=== PATIENT | male | born 1980 | race Caucasian/White ===

== ENCOUNTER 2017-02-17 14:40 | Emergency (ER) | payer OTHER ==
--- NOTE | 2017-02-17 15:03 | ED ---
Skin/Abscess/FB HPI - General Chief complaint: Skin/Abscess/Foreign Body Stated complaint: bug in ear Time Seen by Provider: 02/17/17 14:51 Source: patient, RN notes reviewed Mode of arrival: ambulatory Limitations: no limitations - History of Present Illness Initial comments: 36-year-old male presents emergency Department with chief complaint of right ear about. Patient states that he was up slightly at work and states that a bug flew into his ear. Patient states he can hear it moving around and feel it. Patient denies any bleeding no decreased hearing loss. - Related Data Allergies Allergy/AdvReac Type Severity Reaction Status Date / Time No Known Allergies Allergy Verified 02/17/17 14:51 Review of Systems ROS Statement: Those systems with pertinent positive or pertinent negative responses have been documented in the HPI. ROS Other: All systems not noted in ROS Statement are negative. Past Medical History Past Medical History: No Reported History History of Any Multi-Drug Resistant Organisms: None Reported Past Surgical History: No Surgical Hx Reported Past Psychological History: No Psychological Hx Reported Smoking Status: Current every day smoker Past Alcohol Use History: None Reported Past Drug Use History: None Reported General Exam Limitations: no limitations General appearance: alert, in no apparent distress Eye exam: Present: normal appearance, PERRL, EOMI. Absent: scleral icterus, conjunctival injection, periorbital swelling ENT exam: Present: normal oropharynx, mucous membranes moist, TM's normal bilaterally. Absent: normal exam, normal external ear exam (Right external auditory canal there is about with wings noted) Procedures - Foreign Body Removal Ear Location: ear canal (R) Foreign Body Suspected: insect If Insect Suspected: ear canal inspected; intact TM, insect seen Foreign Body Removed: yes Foreign Body Removal Technique: instrumentation Tympanic Membrane Intact: Yes Patient Tolerated Procedure: well, no complications Complications: none Medical Decision Making - Medical Decision Making 36-year-old male present emergency from for about in his right ear canal. This was removed nontraumatic there is no injury to the callused or TM. Patient be discharged at this time return parameters were discussed. Disposition Clinical Impression: Foreign body in ear Disposition: HOME SELF-CARE Condition: Stable Instructions: Ear Foreign Body (ED) Additional Instructions: Please return to the Emergency Department if symptoms worsen or any other concerns. Referrals: None,Stated [Primary Care Provider] - 1-2 days Time of Disposition: 15:03
== END 2017-02-17 15:12 | disposition home or self-care (01) ==
LOC: EC 14:40
DX: T16.1XXA Foreign body in right ear, initial encounter (principal); F17.200 Nicotine dependence, unspecified, uncomplicated; Y92.89 Other specified places as the place of occurrence of the external cause; Y93.89 Activity, other specified
CPT/HCPCS: 69200; 99282

== ENCOUNTER 2022-05-28 08:04 | Emergency (ER) | payer OTHER ==
[2022-05-28 08:29] VITALS: BP 151/85; PULSE 74; RESP 18; TEMP 98.7
[2022-05-28] MEDS ORDERED: DEXAMETHASONE SOD PHOSPHATE 10 MG/ML 1 ML VIAL IM STA (08:48)
--- NOTE | 2022-05-28 08:51 | ED ---
ENT HPI - General Chief complaint: ENT Stated complaint: Sore throat, unable to swallow Time Seen by Provider: 05/28/22 08:09 Source: patient, family, RN notes reviewed Mode of arrival: ambulatory Limitations: no limitations - History of Present Illness Initial comments: This is a 42-year-old male who presents to the emergency department for a sore throat. States that it initially started 3 days ago, seemed to get better, and then returned. His throat was initially scratchy and now it is very painful. He is unable to swallow due to the pain. Denies any other upper respiratory symptoms. Patient is very tearful in the room due to his discomfort. Denies any sick contacts. Denies any fevers, chills, cough, dyspnea, chest pain, palpitations, abdominal pain, nausea, vomiting, diarrhea, back pain, or headaches. MD complaint: sore throat Onset/Timin -: days(s) Location: throat Worsens with: swallowing - Related Data Previous Rx's Medication Instructions Recorded Nirmatrelvir/Ritonavir [Paxlovid 1 each PO BID 5 Days #10 each 05/28/22 300-100 mg Pack (Eua)] Allergies Allergy/AdvReac Type Severity Reaction Status Date / Time No Known Allergies Allergy Verified 05/28/22 08:29 Review of Systems ROS Statement: Those systems with pertinent positive or pertinent negative responses have been documented in the HPI. ROS Other: All systems not noted in ROS Statement are negative. Past Medical History Past Medical History: No Reported History History of Any Multi-Drug Resistant Organisms: None Reported Past Surgical History: No Surgical Hx Reported Past Psychological History: No Psychological Hx Reported Smoking Status: Never smoker Past Alcohol Use History: None Reported Past Drug Use History: None Reported General Exam Limitations: no limitations General appearance: alert, in distress Head exam: Present: atraumatic, normocephalic, normal inspection ENT exam: Present: other (Posterior pharyngeal erythema with 2-3+ tonsillar hypertrophy. No uvula deviation or exudates.) Respiratory exam: Present: normal lung sounds bilaterally. Absent: respiratory distress, wheezes, rales, rhonchi, stridor Cardiovascular Exam: Present: regular rate, normal rhythm, normal heart sounds. Absent: systolic murmur, diastolic murmur, rubs, gallop, clicks Neurological exam: Present: alert, oriented X3, CN II-XII intact Psychiatric exam: Present: normal affect, normal mood Skin exam: Present: warm, dry, intact, normal color. Absent: rash Course Vital Signs 05/28/22 08:26 Temperature 98.7 F Pulse Rate 74 Respiratory 18 Rate Blood Pressure 151/85 O2 Sat by Pulse 98 Oximetry Medical Decision Making - Medical Decision Making This is a 60-[id number]-year-old male who presents to the emergency department for a sore throat. Patient tested for COVID and strep throat. 10mg of IM Decadron was administered. Patient positive for COVID-19 and rapid strep test was negative. Prescription for Paxlovid provided. Advised [id number] ibuprofen and Tylenol as needed for additional relief. He is also instructed to quarantine for 5 days and practice extra precautions for an additional 5 days, including always wearing a mask around others and avoiding travel. Return precautions reviewed in depth, the patient is instructed to return to the emergency department with any new, worsening, or concerning symptoms. Patient verbalized understanding. This case was discussed in detail with the attending ED physician. Presentation, findings, and treatment plan discussed in detail as well. - Lab Data Lab Results 05/28/22 05/28/22 Range/Units 08:33 08:35 Coronavirus (PCR) Detected A (Not Detectd) Group A Strep Rapid Negative (Negative) Disposition Clinical Impression: COVID-19 Disposition: HOME SELF-CARE Instructions (If sedation given, give patient instructions): COVID-19 (Coronavirus Disease 2019) (ED), How to Recover from COVID-19 at Home (ED) Additional Instructions: Return to the emergency department with any new, worsening, or concerning symptoms. Take the Paxlovid as prescribed for 5 days. Take Ibuprofen and Tylenol to help with throat pain and swelling. Make sure that you quarantine for 5 days and practice extra precautions for an additional 5 days, including always wearing a mask around others and avoiding travel. Prescriptions: Nirmatrelvir/Ritonavir [Paxlovid 300-100 mg Pack (Eua)] 1 each PO BID 5 Days #10 each Is patient prescribed a controlled substance at d/c from ED?: No Referrals: Leonardo Gaona Jr, DO [Primary Care Provider] - 1-2 days
== END 2022-05-28 09:45 | disposition home or self-care (01) ==
LOC: EC 08:04
DX: U07.1 COVID-19 (principal)
CPT/HCPCS: 87081; 87430; 87635; 99283; 96372; J1100

== ENCOUNTER 2023-03-12 20:48 | Observation (INO) | payer OTHER ==
[2023-03-12] MEDS ORDERED: HYDROmorphone 0.5 MG/0.5 ML SYRINGE IVP STA (20:52)
[2023-03-12 20:56] LABS: Glucose,Whole Blood 116 mg/dL (70-110)
[2023-03-12 21:18] LABS: ALT 25 U/L (4-49); AST 34 U/L (17-59); African American GFR (CKD) >90 (>60 ml/min/1.73 sqM); Albumin 4.2 g/dL (3.5-5.0); Alkaline Phosphatase 54 U/L (38-126); Anion Gap 10 mmol/L; Blood Urea Nitrogen 13 mg/dL (9-20); Calcium 8.2 mg/dL (8.4-10.2); Carbon Dioxide 23 mmol/L (22-30); Chloride 103 mmol/L (98-107); Glucose 120 mg/dL (74-99); Non-African American GFR(CKD) 82 (>60 ml/min/1.73 sqM); Potassium 3.3 mmol/L (3.5-5.1); Sodium 136 mmol/L (137-145); Total Bilirubin 0.6 mg/dL (0.2-1.3)
[2023-03-12 21:21] LABS: Alcohol 224 mg/dL; Basophils # (A) 0.1 k/uL (0-0.2); Basophils % (A) 0 %; Eosinophils # (A) 0.1 k/uL (0-0.7); Eosinophils % (A) 1 %; HCT 41.8 % (39.0-53.0); Lymphocytes # (A) 2.7 k/uL (1.0-4.8); Lymphocytes % (A) 25 %; MCH 28.8 pg (25.0-35.0); MCHC 33.4 g/dL (31.0-37.0); MCV 86.1 fL (80.0-100.0); Monocytes # (A) 0.4 k/uL (0-1.0); Monocytes % (A) 3 %; Neutrophils # (A) 7.5 k/uL (1.3-7.7); Neutrophils % (A) 69 %; Platelet Count 281 k/uL (150-450); RBC 4.86 m/uL (4.30-5.90); RDW 12.5 % (11.5-15.5); WBC 10.9 k/uL (3.8-10.6)
[2023-03-12 21:23] LABS: Prothrombin Time 10.5 sec (9.0-12.0)
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
[2023-03-12 21:51] LABS: Partial Thromboplastin Time 18.8 sec (22.0-30.0)
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
[2023-03-12] MEDS ORDERED: NALOXONE 0.4 MG/ML 1 ML VIAL IV PRN (22:27)
[2023-03-12] MEDS: HYDROmorphone 1 MG/ML 1 ML SYRINGE IVP PRN (22:51)
[2023-03-13] MEDS: HYDROmorphone 0.5 MG/0.5 ML SYRINGE IVP PRN ×3 (01:55→16:19)
[2023-03-13 03:29] LABS: Basophils % (A) 0 %; Eosinophils % (A) 0 %; HCT 40.2 % (39.0-53.0); Lymphocytes % (A) 6 %; MCH 29.2 pg (25.0-35.0); MCHC 34.8 g/dL (31.0-37.0); MCV 83.7 fL (80.0-100.0); Mean Platelet Volume 7.3; Monocytes # (A) 0.6 k/uL (0-1.0); Monocytes % (A) 4 %; Neutrophils # (A) 13.6 k/uL (1.3-7.7); Neutrophils % (A) 89 %; Platelet Count 255 k/uL (150-450); RBC 4.81 m/uL (4.30-5.90); RDW 12.7 % (11.5-15.5); WBC 15.2 k/uL (3.8-10.6)
[2023-03-13] MEDS: HYDROmorphone 1 MG/ML 1 ML SYRINGE IVP PRN ×3 (05:04→21:11)
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
[2023-03-13] MEDS ORDERED: ACETAMINOPHEN TAB 325 MG TAB PO PRN (09:53)
[2023-03-13] MEDS ORDERED: ONDANSETRON 4 MG/2 ML VIAL IVP PRN (09:53)
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
[2023-03-13] MEDS: HYDROcodone/APAP 5-325MG 1 EACH TAB PO PRN ×3 (10:20→22:59)
[2023-03-13] MEDS: HEPARIN SODIUM,PORCINE/PF 5,000 UNIT/0.5 ML SYRINGE SQ SCH ×2 (10:20→16:19)
[2023-03-13] MEDS: FAMOTIDINE 20 MG TAB PO SCH ×2 (10:20→21:10)
[2023-03-13 10:28] LABS: Basophils % (A) 0 %; Eosinophils # (A) 0.1 k/uL (0-0.7); Eosinophils % (A) 0 %; HGB 13.9 gm/dL (13.0-17.5); Lymphocytes # (A) 1.4 k/uL (1.0-4.8); Lymphocytes % (A) 12 %; MCH 29.2 pg (25.0-35.0); MCHC 33.9 g/dL (31.0-37.0); MCV 86.2 fL (80.0-100.0); Mean Platelet Volume 8.3; Monocytes # (A) 0.6 k/uL (0-1.0); Monocytes % (A) 5 %; Neutrophils # (A) 9.6 k/uL (1.3-7.7); Neutrophils % (A) 83 %; Platelet Count 293 k/uL (150-450); RBC 4.76 m/uL (4.30-5.90); RDW 12.6 % (11.5-15.5); WBC 11.6 k/uL (3.8-10.6)
[2023-03-13 10:34] LABS: ALT 30 U/L (4-49); AST 57 U/L (17-59); African American GFR (CKD) >90 (>60 ml/min/1.73 sqM); Albumin 4.2 g/dL (3.5-5.0); Alkaline Phosphatase 54 U/L (38-126); Anion Gap 13 mmol/L; Blood Urea Nitrogen 11 mg/dL (9-20); Calcium 8.5 mg/dL (8.4-10.2); Carbon Dioxide 20 mmol/L (22-30); Chloride 102 mmol/L (98-107); Glucose 114 mg/dL (74-99); Non-African American GFR(CKD) >90 (>60 ml/min/1.73 sqM); Potassium 4.3 mmol/L (3.5-5.1); Sodium 135 mmol/L (137-145); Total Bilirubin 0.8 mg/dL (0.2-1.3); Total Protein 7.1 g/dL (6.3-8.2)
--- NOTE | 2023-03-13 10:55 | XR ---
EXAMINATION TYPE: XR clavicle LT DATE OF EXAM: 03/13/2023 COMPARISON: Earlier chest x-ray, CT chest abdomen pelvis 03/12/2023, chest x-ray 03/12/2023 HISTORY: Comminuted fracture left clavicle TECHNIQUE: Left clavicle is examined in 2 projections. FINDINGS: There is a bayonet deformity of the distal clavicle displaced inferior to the proximal clav icle fracture fragment. Multiple fracture fragments are present compatible with comminuted fracture. Findings are stable from comparison images IMPRESSION: 1. Persistent comminuted mid diaphyseal left clavicular fracture.
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
[2023-03-13] MEDS: D5-0.45% NACL WITH KCL 20MEQ/L 1,000 ML IV SCH ×2 (11:43→18:15)
[2023-03-13] MEDS: KETOROLAC 15 MG/ML 1 ML VIAL IVP SCH ×2 (11:44→17:33)
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
[2023-03-13] MEDS: DOCUSATE 100 MG CAP PO SCH (21:10)
[2023-03-14] MEDS: KETOROLAC 15 MG/ML 1 ML VIAL IVP SCH ×4 (00:30→17:00)
[2023-03-14] MEDS: HEPARIN SODIUM,PORCINE/PF 5,000 UNIT/0.5 ML SYRINGE SQ SCH ×3 (00:30→17:01)
[2023-03-14] MEDS: HYDROmorphone 1 MG/ML 1 ML SYRINGE IVP PRN ×2 (03:22→08:47)
[2023-03-14] MEDS: HYDROcodone/APAP 5-325MG 1 EACH TAB PO PRN ×3 (06:07→21:03)
[2023-03-14] MEDS: D5-0.45% NACL WITH KCL 20MEQ/L 1,000 ML IV SCH ×3 (06:08→20:57)
[2023-03-14 07:29] LABS: Basophils % (A) 1 %; Eosinophils # (A) 0.2 k/uL (0-0.7); Eosinophils % (A) 3 %; HCT 38.6 % (39.0-53.0); HGB 12.8 gm/dL (13.0-17.5); Lymphocytes % (A) 28 %; MCHC 33.2 g/dL (31.0-37.0); MCV 87.2 fL (80.0-100.0); Mean Platelet Volume 7.9; Monocytes # (A) 0.7 k/uL (0-1.0); Monocytes % (A) 9 %; Neutrophils # (A) 4.2 k/uL (1.3-7.7); Neutrophils % (A) 58 %; Platelet Count 203 k/uL (150-450); RBC 4.42 m/uL (4.30-5.90); RDW 12.7 % (11.5-15.5); WBC 7.2 k/uL (3.8-10.6)
[2023-03-14 07:40] LABS: ALT 26 U/L (4-49); AST 50 U/L (17-59); African American GFR (CKD) >90 (>60 ml/min/1.73 sqM); Albumin 3.2 g/dL (3.5-5.0); Alkaline Phosphatase 56 U/L (38-126); Anion Gap 4 mmol/L; Blood Urea Nitrogen 13 mg/dL (9-20); Carbon Dioxide 27 mmol/L (22-30); Chloride 106 mmol/L (98-107); Glucose 96 mg/dL (74-99); Non-African American GFR(CKD) >90 (>60 ml/min/1.73 sqM); Potassium 4.3 mmol/L (3.5-5.1); Sodium 137 mmol/L (137-145); Total Bilirubin 0.8 mg/dL (0.2-1.3); Total Protein 5.8 g/dL (6.3-8.2)
[2023-03-14] MEDS: FAMOTIDINE 20 MG TAB PO SCH ×2 (08:43→21:03)
[2023-03-14] MEDS: DOCUSATE 100 MG CAP PO SCH ×2 (08:43→21:03)
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
[2023-03-14 17:18] VITALS: RESP 18
[2023-03-15] MEDS: HYDROcodone/APAP 5-325MG 1 EACH TAB PO PRN ×2 (01:04→09:10)
[2023-03-15] MEDS: KETOROLAC 15 MG/ML 1 ML VIAL IVP SCH ×2 (01:05→06:19)
[2023-03-15] MEDS: HEPARIN SODIUM,PORCINE/PF 5,000 UNIT/0.5 ML SYRINGE SQ SCH ×2 (01:05→09:06)
[2023-03-15] MEDS: D5-0.45% NACL WITH KCL 20MEQ/L 1,000 ML IV SCH (05:39)
[2023-03-15] MEDS: DOCUSATE 100 MG CAP PO SCH (09:06)
[2023-03-15] MEDS: FAMOTIDINE 20 MG TAB PO SCH (09:06)
[2023-03-15 09:14] VITALS: BP 125/76; PULSE 62; TEMP 98.2
--- NOTE | 2023-03-15 09:37 | P.DS ---
Providers Date of admission: 03/12/23 22:27 Expected date of discharge: 03/15/23 Attending physician: Jesu Torres Consults: 03/12/23 22:32 Consult Physician Routine Consulting Provider: Jessica Still Consult Reason/Comments: Multiple rib fractures Do you want consulting provider notified?: Yes 03/12/23 22:33 Consult Physician Routine Consulting Provider: Smith Crowlel Consult Reason/Comments: Clavicle fracture Do you want consulting provider notified?: Yes Primary care physician: [facility] Course: Patient is staying overnight because he was having increased pain. Doing better today. He is ambulating in the hallway. He would like to go home. We'll discharge. Follow-up with orthopedics. Patient Condition at Discharge: Serious Plan - Discharge Summary Discharge Rx Participant: Yes New Discharge Prescriptions: New oxyCODONE HCL [OxyIR] 5 mg PO Q6H PRN 3 Days #12 tab PRN Reason: Breakthrough Pain Ibuprofen [Motrin] 600 mg PO Q6HR PRN #30 tab PRN Reason: pain Discharge Medication List Ibuprofen [Motrin] 600 mg PO Q6HR PRN #30 tab 03/14/23 [Rx] oxyCODONE HCL [OxyIR] 5 mg PO Q6H PRN 3 Days #12 tab 03/14/23 [Rx] Follow up Appointment(s)/Referral(s): Yaa Andrew DO [Doctor of Osteopathic Medicine] - 1 Week Leonardo Gaona Jr, DO [Primary Care Provider] - 1-2 days Activity/Diet/Wound Care/Special Instructions: Maintain sling the left upper extremity. Maintain thumb spica splint to right upper extremity. Please follow-up with [facility] in one week, [phone]. Discharge/Stand Alone Forms: AA Meetings [place], Community Resources, Inp Substance Abuse Facilities
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
== END 2023-03-15 10:33 | disposition home or self-care (01) ==
LOC: EC 20:48 → 3SCARD 22:27 → INTOOBSV 22:27 → 3SCARD 23:45 → UNDODISIN 03-15 10:33
PROVIDERS: ADMIT Surgery; ATTEND Surgery
DX: S42.022A Displaced fracture of shaft of left clavicle, initial encounter for closed fracture (principal); S22.42XA Multiple fractures of ribs, left side, initial encounter for closed fracture; S62.291A Other fracture of first metacarpal bone, right hand, initial encounter for closed fracture; F10.929 Alcohol use, unspecified with intoxication, unspecified; J98.11 Atelectasis; V86.56XA Driver of dirt bike or motor/cross bike injured in nontraffic accident, initial encounter; Y93.I9 Activity, other involving external motion; Y90.7 Blood alcohol level of 200-239 mg/100 ml
CPT/HCPCS: 96376 ×4; 96365; 96366 ×2; 96372 ×3; 96375; 99285; 36415; 94760 ×2; 93005; 86900; 86901; 80053 ×3; 83605 ×2; 84484; 85025 ×3; 85610; 85730; 86850; 72170; 73000; 73140; 71045 ×2; 72125; 70450; 71260; 74177; 29130; G0378 ×4; G0480; J1170 ×5; J1885 ×3; Q9967; J1644 ×3; 80320; 96374